=== PATIENT | male | born 1990 | race Caucasian/White ===

== ENCOUNTER → 2019-05-22 17:27 | Outpatient (CLI) | payer BC, SELFPAY ==
[2019-05-22 18:07] LABS: Basophils # 0.1 K/mm3 (0-0.2); Basophils % 0.7 % (0.1-2.0); Eosinophils # 0.4 K/mm3 (0.0-0.4); Hematocrit 49.5 % (42.0-52.0); Hemoglobin 16.8 g/dL (14.1-18.0); Lymphocytes # 2.7 K/mm3 (0.7-4.5); Lymphocytes % 26.9 % (10-50); Mean Corpuscular HGB Conc 34.1 g/dL (31.8-35.4); Mean Corpuscular Hemoglobin 28.5 pg (27.0-31.2); Mean Corpuscular Volume 83.6 fl (80-94); Mean Platelet Volume 8.6 fl (7.4-10.4); Monocytes # 0.9 K/mm3 (0.1-1.0); Monocytes % 9.2 % (1.7-9.3); Neutrophils # 5.8 K/mm3 (1.8-7.8); Neutrophils % 59.2 % (37.0-80.0); Platelet Count 277 K/mm3 (142-424); Red Blood Count 5.92 M/mm3 (4.60-6.20); Red Cell Distribution Width 13.1 % (11.5-17.5); White Blood Count 9.9 K/mm3 (4.8-10.8)
[2019-05-22 19:35] LABS: Alanine Aminotransferase 39 U/L (12-78); Albumin Level 4.1 gm/dL (3.4-5.0); Albumin/Globulin Ratio 1.2 (1.1-1.8); Alkaline Phosphatase 73 U/L (46-116); Anion Gap 18.5 mEq/L (5-15); Aspartate Amino Transferase 21 U/L (15-37); Bilirubin,Total 0.5 mg/dL (0.2-1.0); Blood Urea Nitrogen 10 mg/dL (7-18); Carbon Dioxide 23 mmol/L (21.0-32.0); Chloride 107 mmol/L (98-107); Chol/HDL Ratio 3.8 (1-3.5); Cholesterol 181 mg/dL (140-200); Creatinine,Serum 0.85 mg/dL (0.70-1.30); Estimated Glomerular Filt Rate 106 ml/min (>60); GFR (African American) 128 ML/MIN (>60); Globulin 3.3 gm/dl (1.3-3.2); Glucose 104 mg/dL (74-106); HDL Cholesterol 48 mg/dL (27-67); LDL Cholesterol 85 mg/dL (0-130); Potassium 4.5 mmoL/L (3.5-5.1); Sodium 144 mmol/L (136-145); Thyroid Stimulating Hormone 1.49 uIU/ml (0.358-3.740); Total Protein,Serum 7.4 gm/dL (6.4-8.2); Triglycerides 242 mg/dL (30-200); VLDL Cholesterol 48 mg/dL (0-40)
[2019-05-24 10:19] LABS: Vitamin D 25 Hydroxy 21.4 ng/mL (30.0-100.0)
[2019-05-24 11:08] LABS: Hep A Ab, IgM Negative (Negative); Hepatitis B Core Antibody IgM Negative (Negative); Hepatitis B Surface Antigen Negative (Negative)
[2019-05-24 18:09] LABS: Hepatitis C Antibody <0.1 s/co ratio (0.0-0.9)
== END ==
PROVIDERS: Visit Provider Nurse Practitioner Family
DX: D17.9 Benign lipomatous neoplasm, unspecified (principal); R53.83 Other fatigue; Z13.220 Encounter for screening for lipoid disorders; Z11.59 Encounter for screening for other viral diseases; R73.09 Other abnormal glucose; E55.9 Vitamin D deficiency, unspecified
CPT/HCPCS: 80053; 80061; 80074; 82652; 83036; 84436; 84443; 85025

== ENCOUNTER → 2019-06-02 10:50 | Outpatient (CLI) | payer BC, SELFPAY ==
--- NOTE | 2019-06-02 10:51 | US_ITS ---
PROCEDURE: US EXTREMITY RT LIMITED CLINICAL INDICATION: lipoma COMPARISON: No exams were available for comparison FINDINGS: Right arm palpable area just above the elbow shows a oval shaped homogeneous oval-shaped focus with smooth margins of equal echogenicity compared to the surrounding subcutaneous fat. Maximal diameter is 2.5 centimeters. Right arm palpable area mid forearm shows a oval-shaped echogenic focus equal to the echogenicity of the subcutaneous fat. This is just beneath the skin surface with maximal diameter 1.8 centimeters. IMPRESSION: Multiple right arm lesions have echogenicity suggesting lipomas. Suggest further clinical follow-up. If there is any change such is enlargement and MRI with and without contrast would be helpful. Dictated by: Sundeep Fontanez 06/02/2019 11:56 Electronically signed by Sundeep Fontanez in [place] 06/02/2019 11:56
--- NOTE | 2019-06-02 10:51 | US_ITS ---
PROCEDURE: US EXTREMITY LT LIMITED CLINICAL INDICATION: lipoma COMPARISON: No exams were available for comparison FINDINGS: Left arm palpable area just above the elbow shows a oval-shaped well-defined focus of equal echogenicity compared to the subcutaneous fat. The lesion is just beneath the skin surface with maximal diameter of 1.2 centimeters. IMPRESSION: Left arm subcutaneous abnormality suggesting lipoma. Follow-up clinically and if there is any change such as enlargement suggest MRI with contrast if necessary. Dictated by: Sundeep Fontanez 06/02/2019 11:58 Electronically signed by Sundeep Fontanez in [place] 06/02/2019 11:58
== END ==
PROVIDERS: PCP Nurse Practitioner Family; Visit Provider Nurse Practitioner Family
DX: D17.20 Benign lipomatous neoplasm of skin and subcutaneous tissue of unspecified limb (principal)
CPT/HCPCS: 76882

== ENCOUNTER → 2019-06-10 09:52 | Outpatient (POV) | payer BC, SELFPAY | PROVIDERS: Visit Provider Dermatology | DX: Z00.00 Encounter for general adult medical examination without abnormal findings (principal) ==

== ENCOUNTER → 2021-04-26 12:11 | Outpatient (CLI) | payer OTHER, SELFPAY | PROVIDERS: Visit Provider Nurse Practitioner | DX: Z20.822 Contact with and (suspected) exposure to COVID-19 (principal) | CPT/HCPCS: C9803; U0003; U0005 ==